=== PATIENT | male | born 1970 | race Caucasian/White ===

== ENCOUNTER 2017-09-11 15:47 | Emergency (ER) | payer SELFPAY | END 2017-09-11 16:41 | disposition left against medical advice (07) | LOC: E/R 15:47 | DX: Z53.21 Procedure and treatment not carried out due to patient leaving prior to being seen by health care provider (principal) | CPT/HCPCS: 93005 ==

== ENCOUNTER 2017-09-19 21:16 | Inpatient (IN) | payer MEDICAID ==
[2017-09-19] MEDS: SOD CHLORIDE 0.9% 500 ML IV (22:40)
[2017-09-19] MEDS: morphine 4 MG/ML VIAL IV (22:40)
[2017-09-19] MEDS: ONDANSETRON 4 MG INJ IV (22:40)
[2017-09-19 23:02] LABS: ADD MAN DIFF? NO
[2017-09-19 23:07] LABS: BASOPHIL # 0.1 10^3/ul (0.0-0.1); BASOPHILS % 0.6 % (0.0-2.0); EOSINOPHILS # 0.5 10^3/ul (0.0-0.5); EOSINOPHILS % 4.3 % (0.0-7.0); HEMATOCRIT 40.5 % (42.0-52.0); HEMOGLOBIN 13.4 g/dl (14.0-18.0); LYMPHOCYTES # 2.6 10^3/ul (0.8-2.9); LYMPHOCYTES % 24.4 % (15.0-51.0); MEAN CORPUSCULAR HEMOGLOBIN 29.3 pg (29.0-33.0); MEAN CORPUSCULAR HGB CONC 33.1 g/dl (32.0-37.0); MEAN CORPUSCULAR VOLUME 88.4 fl (82.0-101.0); MEAN PLATELET VOLUME 10.2 fl (7.4-10.4); MONOCYTE # 0.9 10^3/ul (0.3-0.9); MONOCYTES % 8.1 % (0.0-11.0); NEUTROPHIL # 6.7 10^3/ul (1.6-7.5); PLATELET COUNT 274 10^3/UL (140-415); RED BLOOD COUNT 4.58 10^6/ul (4.70-6.10); RED CELL DISTRIBUTION WIDTH 13.2 % (11.5-14.5)
[2017-09-19 23:07] LABS: WHITE BLOOD COUNT 10.8 10^3/ul (4.8-10.8)
[2017-09-19 23:23] LABS: ALBUMIN/GLOBULIN RATIO 1.15; ANION GAP 13 (8-16)
[2017-09-19 23:24] LABS: ALANINE AMINOTRANSFERASE 140 IU/L (13-69); ALBUMIN 3.7 g/dl (3.3-4.9); ALKALINE PHOSPHATASE 79 IU/L (42-121); ASPARTATE AMINO TRANSFERASE 75 IU/L (15-46); BLOOD UREA NITROGEN 14 mg/dl (7-20); CALCIUM 9.1 mg/dl (8.4-10.2); CARBON DIOXIDE 28 mmol/L (21-31); CHLORIDE 103 mmol/L (97-110); CREATININE 0.89 mg/dl (0.61-1.24); GLUCOSE 150 mg/dl (70-220); POTASSIUM 3.4 mmol/L (3.5-5.1); SODIUM 141 mmol/L (135-144); TOTAL PROTEIN 6.9 g/dl (6.1-8.1)
[2017-09-19 23:36] LABS: B-TYPE NATRIURETIC PEPTIDE 67 PG/ML (0-125)
[2017-09-19 23:46] LABS: TROPONIN-I < 0.012 ng/ml (0.00-0.12)
[2017-09-19] MEDS: ALBUTEROL/IPRATROPIUM (NEB) 3 ML AMP HHN (23:47)
[2017-09-20] MEDS: HYDROmorphONE 0.5 MG/0.5 ML SYG IV (00:47)
[2017-09-20] MEDS ORDERED: NACL 0.9% 3 ML SYG IV (01:00)
[2017-09-20] MEDS ORDERED: ACETAMINOPHEN 325 MG TAB PO (01:00)
[2017-09-20] MEDS ORDERED: ONDANSETRON 4 MG INJ IV (01:00)
[2017-09-20] MEDS ORDERED: NITROGLYCERIN (SL) 0.4 MG TAB SL (03:00)
[2017-09-20] MEDS: METHYLPREDNISOLONE 125 MG INJ IV (03:06)
[2017-09-20] MEDS: LORAZEPAM 2 MG INJ IV (03:06)
[2017-09-20] MEDS: morphine 2 MG INJ IV ×5 (03:13→20:35)
[2017-09-20] MEDS: ALBUTEROL/IPRATROPIUM (NEB) 3 ML AMP HHN ×5 (04:32→21:05)
[2017-09-20] MEDS: PANTOPRAZOLE (EC) 40 MG TAB PO ×2 (06:30→17:45)
[2017-09-20 09:03] LABS: ADD MAN DIFF? NO
[2017-09-20 09:05] LABS: BASOPHIL # 0.1 10^3/ul (0.0-0.1); BASOPHILS % 0.5 % (0.0-2.0); EOSINOPHILS % 0.2 % (0.0-7.0); HEMATOCRIT 42.9 % (42.0-52.0); HEMOGLOBIN 14.2 g/dl (14.0-18.0); LYMPHOCYTES % 8.9 % (15.0-51.0); MEAN CORPUSCULAR HEMOGLOBIN 29.2 pg (29.0-33.0); MEAN CORPUSCULAR HGB CONC 33.1 g/dl (32.0-37.0); MEAN CORPUSCULAR VOLUME 88.3 fl (82.0-101.0); MEAN PLATELET VOLUME 10.5 fl (7.4-10.4); MONOCYTE # 0.1 10^3/ul (0.3-0.9); MONOCYTES % 1.2 % (0.0-11.0); NEUTROPHIL # 9.5 10^3/ul (1.6-7.5); NEUTROPHILS % 88.2 % (39.0-77.0); PLATELET COUNT 266 10^3/UL (140-415); RED BLOOD COUNT 4.86 10^6/ul (4.70-6.10); RED CELL DISTRIBUTION WIDTH 13.4 % (11.5-14.5)
[2017-09-20 09:05] LABS: WHITE BLOOD COUNT 10.8 10^3/ul (4.8-10.8)
[2017-09-20 09:34] LABS: CREATINE KINASE 205 IU/L (23-200)
[2017-09-20 09:37] LABS: ALANINE AMINOTRANSFERASE 145 IU/L (13-69); ALBUMIN/GLOBULIN RATIO 1.21; ALKALINE PHOSPHATASE 91 IU/L (42-121); ANION GAP 18 (8-16); ASPARTATE AMINO TRANSFERASE 68 IU/L (15-46); BLOOD UREA NITROGEN 16 mg/dl (7-20); CALCIUM 9.4 mg/dl (8.4-10.2); CARBON DIOXIDE 27 mmol/L (21-31); CHLORIDE 103 mmol/L (97-110); CHOL/HDL RATIO 5.8 RATIO; CHOLESTEROL 175 mg/dl (100-200); CREATININE 0.84 mg/dl (0.61-1.24); GLUCOSE 172 mg/dl (70-220); HDL CHOLESTEROL 30 mg/dl (28-71); LDL CHOLESTEROL,CALCULATED 125 mg/dl; MAGNESIUM 2.1 mg/dl (1.7-2.5); POTASSIUM 4.5 mmol/L (3.5-5.1); SODIUM 143 mmol/L (135-144); TOTAL PROTEIN 7.3 g/dl (6.1-8.1); TRIGLYCERIDES 100 mg/dl (0-149)
[2017-09-20 09:42] LABS: CK INDEX 0.7
[2017-09-20 09:44] LABS: CK-MB 1.39 ng/ml (0.0-2.4); TROPONIN-I < 0.012 ng/ml (0.00-0.12)
[2017-09-20 10:00] LABS: THYROID STIMULATING HORMONE 0.538 MIU/L (0.465-4.680)
[2017-09-20] MEDS: ASPIRIN 81 MG TAB PO (11:37)
[2017-09-20 12:25] LABS: CREATINE KINASE 183 IU/L (23-200)
[2017-09-20 12:37] LABS: HEMOGLOBIN A1C 6.2 % (0-5.9)
[2017-09-20 13:27] LABS: CK INDEX 0.7
[2017-09-20 13:29] LABS: CK-MB 1.19 ng/ml (0.0-2.4); TROPONIN-I < 0.012 ng/ml (0.00-0.12)
[2017-09-20] MEDS: NITROGLYCERIN 0.1 MG/HR PATCH TRANSDERM (17:45)
[2017-09-20] MEDS ORDERED: PANTOPRAZOLE 40 MG INJ IV (18:00)
[2017-09-20] MEDS: ATORVASTATIN 40 MG TAB PO (20:34)
[2017-09-20] MEDS: BISACODYL (EC) 5 MG TAB PO (20:36)
[2017-09-21 13:37] LABS: ANCA SCREEN NEGATIVE (NEGATIVE)
[2017-09-21 15:51] LABS: MYELOPEROXIDASE ANTIBODY <1.0 AI; PROTEINASE-3 ANTIBODY <1.0 AI
== END 2017-09-20 20:45 | disposition left against medical advice (07) | DRG 313 ==
LOC: TEL 09-20 → E/R 21:16
DX: R07.9 Chest pain, unspecified (principal); R91.8 Other nonspecific abnormal finding of lung field; I10 Essential (primary) hypertension; F17.210 Nicotine dependence, cigarettes, uncomplicated; J44.9 Chronic obstructive pulmonary disease, unspecified; E66.9 Obesity, unspecified; Z68.37 Body mass index [BMI] 37.0-37.9, adult; Z79.4 Long term (current) use of insulin; I25.2 Old myocardial infarction; Z95.5 Presence of coronary angioplasty implant and graft
CPT/HCPCS: 36415; 71045; 71250; 76705; 80053; 80061; 82550; 82553; 83036; 83735; 83880; 84443; 84484; 85025; 86021; 86480; 86635; 93005; 93306; 94640; 94660; 94664; 96374; 96375; 99285-25

== ENCOUNTER 2017-09-22 22:55 | Emergency (ER) | payer MEDICAID ==
[2017-09-22] MEDS: ASPIRIN 325 MG TAB PO (23:48)
[2017-09-22] MEDS: NITROGLYCERIN 2% 1 GM OINT PKT TD (23:52)
[2017-09-23] MEDS: morphine 4 MG/ML VIAL IV (00:26)
[2017-09-23 00:30] LABS: ADD MAN DIFF? NO
[2017-09-23 00:33] LABS: WHITE BLOOD COUNT 12.3 10^3/ul (4.8-10.8)
[2017-09-23 00:33] LABS: BASOPHIL # 0.1 10^3/ul (0.0-0.1); BASOPHILS % 0.9 % (0.0-2.0); EOSINOPHILS # 0.3 10^3/ul (0.0-0.5); EOSINOPHILS % 2.7 % (0.0-7.0); HEMATOCRIT 42.6 % (42.0-52.0); HEMOGLOBIN 14.3 g/dl (14.0-18.0); LYMPHOCYTES # 3.9 10^3/ul (0.8-2.9); LYMPHOCYTES % 31.5 % (15.0-51.0); MEAN CORPUSCULAR HEMOGLOBIN 29.2 pg (29.0-33.0); MEAN CORPUSCULAR HGB CONC 33.6 g/dl (32.0-37.0); MEAN CORPUSCULAR VOLUME 86.9 fl (82.0-101.0); MEAN PLATELET VOLUME 10.1 fl (7.4-10.4); MONOCYTES % 7.9 % (0.0-11.0); NEUTROPHIL # 6.9 10^3/ul (1.6-7.5); NEUTROPHILS % 56.1 % (39.0-77.0); PLATELET COUNT 288 10^3/UL (140-415); RED CELL DISTRIBUTION WIDTH 13.2 % (11.5-14.5)
[2017-09-23 00:54] LABS: ANION GAP 15 (8-16); BLOOD UREA NITROGEN 16 mg/dl (7-20); CARBON DIOXIDE 27 mmol/L (21-31); CHLORIDE 103 mmol/L (97-110); CREATININE 0.75 mg/dl (0.61-1.24); GLUCOSE 146 mg/dl (70-220); INR 0.93; POTASSIUM 3.8 mmol/L (3.5-5.1); PROTIME 12.5 Sec (11.9-14.9); SODIUM 141 mmol/L (135-144)
[2017-09-23 00:55] LABS: PARTIAL THROMBOPLASTIN TIME 34.2 Sec (25.0-35.0)
[2017-09-23 00:57] LABS: D-DIMER 1769.66 ng/ml (<460)
[2017-09-23 01:06] LABS: B-TYPE NATRIURETIC PEPTIDE 64 PG/ML (0-125)
[2017-09-23 01:07] LABS: ETHANOL < 10.0 mg/dl
[2017-09-23 01:07] LABS: TROPONIN-I < 0.012 ng/ml (0.00-0.12)
== END 2017-09-23 01:00 | disposition left against medical advice (07) ==
LOC: E/R 22:55
DX: R07.9 Chest pain, unspecified (principal); R40.2252 Coma scale, best verbal response, oriented, at arrival to emergency department; I25.10 Atherosclerotic heart disease of native coronary artery without angina pectoris; R40.2142 Coma scale, eyes open, spontaneous, at arrival to emergency department; R40.2362 Coma scale, best motor response, obeys commands, at arrival to emergency department; Z87.891 Personal history of nicotine dependence
CPT/HCPCS: 36415; 71045; 80048; 80306; 83880; 84484; 85025; 85378; 85610; 85730; 93005; 96374; 99285-25